=== PATIENT | female | born 1940 | race Caucasian/White ===

== ENCOUNTER 2022-08-16 10:26 | Emergency (ER) | payer OTHER ==
[~2022-08-16] VITALS: Ht 165.1 cm; Wt 76.7 kg
[2022-08-16] MEDS ORDERED: ERYTHROMYCIN (10:49)
[2022-08-16] MEDS ORDERED: LOSARTAN (10:49)
[2022-08-16] MEDS ORDERED: AMOXICILLIN (10:49)
[2022-08-16] MEDS ORDERED: PROMETHAZINE PO (10:49)
--- NOTE | 2022-08-16 10:49 | NUR ---
PT IS IN ROOM #3. DR DIAZ EVALUATED THE PT. PT DOES NOT REMEMBER DOSAGES OF HER HOME MEDICATION.
[2022-08-16] MEDS ORDERED: ALBUTEROL SULFATE 2.5 MG/3 ML NEBU ONE (11:14)
[2022-08-16] MEDS: ALBUTEROL SULFATE 2.5 MG/3 ML NEBU NEB ONE (11:20)
[2022-08-16 11:22] LABS: HEMATOCRIT 41.7 % (31.2-41.9); MEAN CORPUSCULAR HEMOGLOBIN 31.9 uug (24.7-32.8); MEAN CORPUSCULAR VOLUME 92.4 fL (75.5-95.3); PLATELET COUNT (AUTO) 237 K/uL (179-408)
[2022-08-16 11:39] LABS: CARBON DIOXIDE 27 mmol/L (21-32); CHLORIDE 107 mmol/L (98-107); GLUCOSE 114 mg/dL (74-106); POTASSIUM 4.3 mmol/L (3.5-5.1); UREA NITROGEN, BLOOD 16 mg/dL (7-18)
[2022-08-16 11:51] LABS: ALANINE AMINOTRANSFERASE 23 U/L (14-59); ALKALINE PHOSPHATASE 61 U/L (50-136); BILIRUBIN,DIRECT < 0.1 mg/dL (0.0-0.2); BILIRUBIN,TOTAL 0.4 mg/dL (0.2-1.0); TOTAL PROTEIN, SERUM 7.9 g/dL (6.4-8.2)
[2022-08-16 12:01] LABS: ASPARTATE AMINOTRANSFERASE 25 U/L (15-37)
[2022-08-16] MEDS ORDERED: ACET-2154 PO (12:03)
[2022-08-16] MEDS ORDERED: DOXY-326 PO (12:03)
[2022-08-16] MEDS ORDERED: ALBU6.7H9 INH (12:03)
[2022-08-16] MEDS ORDERED: BENZ-13 PO (12:10)
[2022-08-16] MEDS ORDERED: DOXYCYCLINE HYCLATE 100 MG TABLET ONE (12:25)
[2022-08-16] MEDS: DOXYCYCLINE HYCLATE 100 MG TABLET PO ONE (12:26)
[2022-08-16 12:29] VITALS: BP 145/76
--- NOTE | 2022-08-16 12:41 | NUR ---
Patient discharged to home via private auto with . A/O x 4, ambulatory. Reviewed discharge/ follow up instructions and perscriptions with patient.Verbalzied understanding. IV to right forearm removed. All belongings sent with the patient.
== END 2022-08-16 12:48 | disposition home or self-care (01) ==
LOC: ER 10:26
DX: J40 Bronchitis, not specified as acute or chronic (principal); B34.9 Viral infection, unspecified; Z20.822 Contact with and (suspected) exposure to COVID-19; R94.31 Abnormal electrocardiogram [ECG] [EKG]; Z85.828 Personal history of other malignant neoplasm of skin; R03.0 Elevated blood-pressure reading, without diagnosis of hypertension
CPT/HCPCS: 36415; 71045; 83605; 84484; 85025; 85730; 87040; 93005; A4663